=== PATIENT | female | born 1970 ===

== ENCOUNTER 2016-03-19 13:01 | Emergency (ER) | payer MEDICAID ==
[~2016-03-19] VITALS: Ht 162.6 cm; Wt 75.7 kg
[2016-03-19 13:45] VITALS: BP 164/88
== END 2016-03-19 18:01 | disposition home or self-care (01) ==
LOC: ER 13:04
DX: J06.9 Acute upper respiratory infection, unspecified (principal); F41.9 Anxiety disorder, unspecified; R56.9 Unspecified convulsions; I10 Essential (primary) hypertension
CPT/HCPCS: 71010; 99283; A4606; Z7610